=== PATIENT | male | born 1965 | race Caucasian/White ===

== ENCOUNTER 2017-08-18 23:46 | Emergency (ER) | payer OTHER ==
--- NOTE | 2017-08-18 23:59 | ED GI/GU/ABDOMINAL COMPLAINT ---
History of Present Illness General Chief Complaint: Abdominal Pain/Flank Pain Stated Complaint: PT C/O "SEVERE STOMACH PAIN" MADE SELF VOMIT Source: patient Exam Limitations: no limitations Vital Signs & Intake/Output Vital Signs & Intake/Output ED Intake and Output 08/20 0000 08/19 1200 Intake Total 1100 Output Total Balance 1100 Intake, IV 1100 Allergies Coded Allergies: NO KNOWN ALLERGIES (06/29/11) Triage Nurses Notes Reviewed? yes Onset: Abrupt Duration: hour(s):, constant, getting worse Timing: single episode today Quality/Severity: burning, sharpness, severe Location: epigastric Radiation: no radiation No Modifying Factors: none HPI: 51-year-old male comes into the emergency room with complaints of sudden onset upper abdominal pain. Patient reports that he had some poor be having CABG for dinner followed by a few donuts. He then suddenly felt sudden onset sharp pain in his abdomen. Burning. He feels his abdomen is distended. 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 Denies any other past medical history. Previous surgery when he was a child for pyloric stenosis. Denies any other source of symptoms. Comes in for further evaluation. (Devyn Newman) Reconcile Medications Warfarin Sodium (Coumadin) 2.5 MG TABLET 1 TAB PO DAILY BLOOD THIN (Reported) Warfarin Sodium (Coumadin) 10 MG TABLET 1 TAB PO DAILY BLOOD THIN (Reported) (Manuel Nix MD) Past History Travel History Traveled to [place] past 21 day No Medical History Any Pertinent Medical History? none Tetanus Vaccine: Surgical History Surgical History: pyloric stenosis Psychosocial History What is your primary language Estonian Family History Hx Contributory? No (Devyn Newman) Review of Systems Review of Systems Constitutional: Reports: no symptoms. EENTM: Reports: no symptoms. Respiratory: Reports: no symptoms. Cardiovascular: Reports: no symptoms. GI: Reports: see HPI. Genitourinary: Reports: no symptoms. Musculoskeletal: Reports: no symptoms. Skin: Reports: no symptoms. Neurological/Psychological: Reports: no symptoms. Hematologic/Endocrine: Reports: no symptoms. Immunologic/Allergic: Reports: no symptoms. All Other Systems: Reviewed and Negative (Devyn Newman) Physical Exam Physical Exam General Appearance: well developed/nourished, no apparent distress, alert, awake Head: atraumatic, normal appearance Eyes: Bilateral: normal appearance, EOMI. Ears, Nose, Throat, Mouth: hearing grossly normal, moist mucous membrane Neck: normal inspection Respiratory: normal breath sounds, no respiratory distress Cardiovascular: regular rate/rhythm Gastrointestinal: soft, tenderness (guarding) Back: normal inspection Extremities: normal range of motion Neurologic/Psych: awake, alert, oriented x 3, normal gait, normal mood/affect Skin: intact, normal color (Devyn Newman) Core Measures ACS in differential dx? No Sepsis Present: No Sepsis Focused Exam Completed? No (Dinah APONTE,Manuel) Progress Differential Diagnosis: AMI, appendicitis, biliary colic, cholecystitis, diverticulitis, gastritis, pancreatitis, peptic ulcer, PUD/GERD, perforated viscous, SBO, ureterolithiasis, UTI/pyelo Diagnostic Imaging: Viewed by Me: CT Scan. Discussed w/RAD: CT Scan. (Devyn Newman) Plan of Care: Orders Procedure Date/time Status URINALYSIS 08/19 145 Complete TROPONIN LEVEL 08/19 2355 Complete PROTHROMBIN TIME 08/19 2355 Complete LIPASE 08/19 2355 Complete LACTIC ACID 08/19 2355 Complete COMPREHENSIVE METABOLIC PANEL 08/19 2355 Complete CBC WITHOUT DIFFERENTIAL 08/19 2355 Complete AMYLASE 08/19 2355 Complete EKG 08/19 2355 Active Laboratory Tests 08/19/17 0256: Lactic Acid Cancelled 08/19/17 0145: Urinalysis LIGHT H, Urine Color STRAW, Urine Clarity CLEAR, Urine pH 7.5, Ur Specific [place] 1.015, Urine Protein NEG, Urine Ketones NEG, Urine Nitrite NEG, Urine Bilirubin NEG, Urine Urobilinogen 0.2, Ur Leukocyte Esterase NEG, Ur Microscopic SEDIMENT EXAMINED, Urine RBC 3-5, Ur Epithelial Cells RARE, Hyaline Casts RARE H, Urine Mucus FEW, Urine Hemoglobin TRACE-INTACT H, Urine Glucose NEG 08/19/17 0005: Anion Gap 13, Estimated GFR > 60, BUN/Creatinine Ratio 14.2, Glucose 117 H, Lactic Acid 1.3, Calcium 8.9, Total Bilirubin 0.9, AST 24, ALT 25, Alkaline Phosphatase 65, Troponin I < 0.01, Total Protein 6.4, Albumin 3.7, Globulin 2.7, Albumin/Globulin Ratio 1.4, Amylase 43, Lipase 169, PT 18.1 H, INR 1.65 H, CBC w Diff NO MAN DIFF REQ, RBC 5.09, MCV 88.2, MCH 29.8, MCHC 33.8, RDW 14.1, MPV 7.2 L, Gran % 50.3, Lymphocytes % 34.2, Monocytes % 11.8 H, Eosinophils % 3.3, Basophils % 0.4, Absolute Granulocytes 4.1, Absolute Lymphocytes 2.8, Absolute Monocytes 1.0 H, Absolute Eosinophils 0.3, Absolute Basophils 0 Radiology Impression: no acute abnormality Initial ED EKG: normal axis, normal intervals, normal p-waves, normal QRS complex, normal sinus rhythm, no ST T wave changes Rhythm Strip: normal sinus rhythm (Manuel Nxi MD) Departure Departure Condition: Stable Referrals: Awais Pimentel MD (PCP/Family) Departure Forms: Customer Survey General Discharge Information (Devyn Newman) Departure Time of Disposition: 201 Disposition: HOME OR SELF CARE Clinical Impression Primary Impression: Abdominal pain Qualifiers: Abdominal location: generalized Qualified Code: R10.84 - Generalized abdominal pain Secondary Impressions: Dietary indiscretion PA/PLASTER BLOCK LAYER Co-Sign Statement Statement: ED Attending supervision documentation- x I saw and evaluated the patient. I have also reviewed all the pertinent lab results and diagnostic results. I agree with the findings and the plan of care as documented in the PA's/PLASTER BLOCK LAYER's documentation. [] I have reviewed the ED Record and agree with the PA's/PLASTER BLOCK LAYER's documentation. [] Additions or exceptions (if any) to the PAs/PLASTER BLOCK LAYER's note and plan are summarized below: [] (Manuel Nix MD) Clinical Impression Primary Impression: Abdominal pain Qualifiers: Abdominal location: generalized Qualified Code: R10.84 - Generalized abdominal pain Secondary Impressions: Dietary indiscretion PA/PLASTER BLOCK LAYER Co-Sign Statement Statement: ED Attending supervision documentation- x I saw and evaluated the patient. I have also reviewed all the pertinent lab results and diagnostic results. I agree with the findings and the plan of care as documented in the PA's/PLASTER BLOCK LAYER's documentation. [] I have reviewed the ED Record and agree with the PA's/PLASTER BLOCK LAYER's documentation. [] Additions or exceptions (if any) to the PAs/PLASTER BLOCK LAYER's note and plan are summarized below: [] (Manuel Nix MD)
[2017-08-19] MEDS ORDERED: COUMADIN2.5 M1 PO (00:17)
[2017-08-19] MEDS ORDERED: COUMADIN10 M1 PO (00:17)
[2017-08-19 00:28] LABS: ABSOLUTE BASOPHIL COUNT 0 /CUMM (0.0-0.2); ABSOLUTE EOSINOPHIL COUNT 0.3 /CUMM (0.0-0.7); ABSOLUTE GRANULOCYTE CT 4.1 /CUMM (1.4-6.5); ABSOLUTE LYMPH COUNT 2.8 /CUMM (1.2-3.4); BASOPHIL % 0.4 % (0.0-2.0); EOSINOPHIL % 3.3 % (0-5); GRANULOCYTE % 50.3 % (42.2-75.2); HEMATOCRIT 44.9 % (42-52); MEAN CORPUSCULAR HGB 29.8 PG (27.0-31.0); MEAN CORPUSCULAR HGB CONC 33.8 G/DL (33.0-37.0); MEAN CORPUSCULAR VOLUME 88.2 FL (80.0-94.0); MEAN PLATELET VOLUME 7.2 FL (7.4-10.4); PLATELET COUNT 281 /CUMM (130-400); RBC DISTRIBUTION WIDTH 14.1 % (11.5-14.5); RED BLOOD CELL CT 5.09 /CUMM (4.70-6.10); WHITE BLOOD CELL COUNT 8.2 /CUMM (4.8-10.8)
[2017-08-19 00:29] LABS: PT 18.1 SEC (9.4-12.5)
--- NOTE | 2017-08-19 01:42 | CT SCAN REPORT ---
EXAMINATION: CT ABDOMEN AND PELVIS WITH CONTRAST CLINICAL INFORMATION: Sudden onset severe abdominal pain COMPARISON: None TECHNIQUE: Multidetector volumetric imaging was performed of the abdomen and pelvis following IV administration of 95 mL of Optiray 320 intravenous contrast. Sagittal and coronal reformatted images were obtained on the technologist's workstation. DLP: 656.72 mGy-cm FINDINGS: LUNG BASES: The visualized lung bases are unremarkable. LIVER, GALLBLADDER, AND BILIARY TREE: The liver is normal in size, shape, and attenuation. No focal hepatic lesion or biliary ductal dilatation is present. The gallbladder is unremarkable with no evidence of radiopaque gallstones, gallbladder wall thickening, or obvious pericholecystic inflammatory changes. PANCREAS: Unremarkable. SPLEEN: Unremarkable. ADRENAL GLANDS: Unremarkable. KIDNEYS AND URETERS: The kidneys are normal in size, shape, and attenuation. No hydronephrosis, hydroureter, or calculi seen. No perinephric stranding. BLADDER: Unremarkable. GASTROINTESTINAL TRACT: The small and large bowel are unremarkable. The appendix is unremarkable. ABDOMINAL WALL: Surgical mesh at the left groin. No evidence of recurrent hernia. LYMPH NODES: Normal. VASCULAR: Unremarkable. PELVIC VISCERA: Unremarkable. OSSEOUS STRUCTURES: Mild degenerative lipping at the anterior endplates of the thoracic and lumbar vertebrae. Mild multilevel facet joint arthrosis at lower lumbar spine. There is a grade 1 anterolisthesis of L4 on L5 with vacuum disc phenomenon at this disc level. IMPRESSION: No significant abnormality.
[2017-08-19 04:18] VITALS: BP 100/52
== END 2017-08-19 06:41 ==
LOC: ERH 23:46
PROVIDERS: Physician Assistant Medical
DX: R10.13 Epigastric pain (principal); Z79.01 Long term (current) use of anticoagulants
CPT/HCPCS: 74177; 81001; 93005; 93010; 96361; 96374; 96375; J0131; J2405; J2765